=== PATIENT | male | born 1975 | race American Indian/Alaskan Native ===

== ENCOUNTER 2019-02-02 11:01 | Observation (INO) | payer MEDICAID, OTHER ==
[2019-02-02 11:33] VITALS: BMI 26.6
[2019-02-02] MEDS ORDERED: Sodium Chloride 0.9% 1,000 ML IV STA ×2 (11:43→13:26)
[2019-02-02 12:06] LABS: BASO # 0.02 K/mm3 (0.0-2.0); BASO % 0.2 % (0.0-3.0); HEMOGLOBIN 15.7 g/dL (14.0-18.0); MEAN CELL VOLUME 88.2 fl (80.0-105.0); MEAN CORPUSCULAR HEMOGLOBIN 30.9 pg (25.0-35.0); MEAN PLATELET VOLUME 9.6 fl (7.0-11.0); MONO # 0.2 (0.1-0.6); MONO % 1.9 % (1.0-6.0); RBC 5.08 10^6/uL (3.5-6.1); WHITE BLOOD COUNT 12.9 10^3/uL (4.5-11.0)
--- NOTE | 2019-02-02 12:09 | ED PDOC ---
Arrival/HPI - General Chief Complaint: Abdominal Pain Time Seen by Provider: 02/02/19 11:04 Historian: Patient - History of Present Illness Narrative History of Present Illness (Text): 02/02/19 12:01 43 year old M with pmh of appendectomy (3 month ago) presents with chief complaint of abdominal pain w/ nausea, vomiting, diarrhea, fevers and chills for the past 3 days. He reports being unable to tolerate PO recently due to vomiting and diarrhea. He denies any recent travel or consumption of usual food. He attempted to self-medicate by taking Pepto-Bismol with no relief in symptoms. He also reports associated intermittent chest pain for the last 2 weeks. Patient denies any headache, dizziness, shortness of breath, dyspnea on exertion, cough, back pain, neck pain, or any other complaint. Time/Duration: < week Symptom Onset: Sudden Symptom Course: Unchanged Activities at Onset: Rest Context: Home Past Medical History - Provider Review Nursing Documentation Reviewed: Yes - Travel History Have you recently traveled outside [place] w/in the past 3 mons?: No - Infectious Disease Hx of Infectious Diseases: None - Psychiatric Hx Substance Use: No - Surgical History Hx Appendectomy: Yes (3 months ago) - Anesthesia Hx Anesthesia: Yes Hx Anesthesia Reactions: No Hx Malignant Hyperthermia: No Family/Social History - Physician Review Nursing Documentation Reviewed: Yes Family/Social History: Unknown Family HX Smoking Status: Current Some Days Smoker Hx Alcohol Use: Yes Frequency of alcohol use: Socially Hx Substance Use: No Allergies/Home Meds Allergies/Adverse Reactions: Allergies No Known Allergies Allergy (Verified 02/02/19 11:36) Review of Systems - Physician Review All systems were reviewed & negative as marked: Yes - Review of Systems Constitutional: Fevers, Other (chills) Eyes: Normal ENT: Normal. absent: Sore Throat, Rhinorrhea Respiratory: Normal. absent: SOB, Wheezing Cardiovascular: Chest Pain. absent: Palpitations Gastrointestinal: Abdominal Pain, Diarrhea, Nausea, Vomiting Genitourinary Male: Normal Musculoskeletal: Normal Skin: Normal Neurological: Normal. absent: Headache, Dizziness Endocrine: Normal Hemo/Lymphatic: Normal Psychiatric: Normal Physical Exam Vital Signs Reviewed: Yes Vital Signs Temp Pulse Resp BP Pulse Ox 02/02/19 11:02 99.1 F 86 18 109/66 100 Temperature: Afebrile Blood Pressure: Normal Pulse: Regular Respiratory Rate: Normal Appearance: Positive for: Well-Appearing, Non-Toxic, Comfortable Pain Distress: Moderate Mental Status: Positive for: Alert and Oriented X 3 - Systems Exam Head: Present: Atraumatic, Normocephalic Pupils: Present: PERRL Extroacular Muscles: Present: EOMI Conjunctiva: Present: Normal Mouth: Present: Moist Mucous Membranes Neck: Present: Normal Range of Motion Respiratory/Chest: Present: Clear to Auscultation, Good Air Exchange. No: Respiratory Distress, Accessory Muscle Use Cardiovascular: Present: Regular Rate and Rhythm, Normal S1, S2. No: Murmurs Abdomen: Present: Tenderness (diffuse). No: Distention, Peritoneal Signs Back: Present: Normal Inspection Upper Extremity: Present: Normal Inspection. No: Cyanosis, Edema Lower Extremity: Present: Normal Inspection. No: Edema Neurological: Present: Speech Normal Skin: Present: Warm, Dry, Normal Color. No: Rashes Psychiatric: Present: Alert, Oriented x 3, Normal Insight, Normal Concentration Medical Decision Making ED Course and Treatment: 02/02/19 12:09 Impression: 43 year old M presents with chief complaint of abdominal pain w/ nausea, vomiting, diarrhea, fevers and chills x3 days . Patient also complains of chest pain x 2wks. Plan: -- Labs -- Chest X-ray --CT a/p -- Zofran -- UA -- Reassess and disposition Prior Visits: Notes and results from previous visits were reviewed. Progress Notes: 02/02/19 16:02 Patient reevaluated and reports minimal change from initial presentation. Labs reviewed with slight a a CT a/p reveals no acute intraabdominal pathology. Shared decision making with patient to stay in the hospital for observation. Discussed case with Dr. Haynes(hospitalist) who accepts case onto her service. - Lab Interpretations Lab Results: 02/02/19 11:58 02/02/19 11:58 Lab Results 02/02/19 11:58: Sodium 141, Potassium 4.0, Chloride 104, Carbon Dioxide 25, Anion Gap 16, BUN 19, Creatinine 0.8, Est GFR ( Amer) > 60, Est GFR (Non- Af Amer) > 60, Random Glucose 112 H, Calcium 9.6, Total Bilirubin 0.6, AST 44, ALT 9, Alkaline Phosphatase 73, Troponin I < 0.01, Total Protein 8.3, Albumin 4.6, Globulin 3.8, Albumin/Globulin Ratio 1.2, Lipase 83 02/02/19 11:58: PT 12.0, INR 1.06, APTT 34.9 02/02/19 11:58: WBC 12.9 H, RBC 5.08, Hgb 15.7, Hct 44.8, MCV 88.2, MCH 30.9, MCHC 35.0, RDW 13.0, Plt Count 260, MPV 9.6, Neut % (Auto) 89.9 H, Lymph % (Auto) 8.0 L, [place] % (Auto) 1.9, Eos % (Auto) 0.0 L, Baso % (Auto) 0.2, Lymph # (Auto) 1.0 L, [place] # (Auto) 0.2, Eos # (Auto) 0.0, Baso # (Auto) 0.02, Absolute Neuts (auto) 11.58 H I have reviewed the lab results: Yes - RAD Interpretation Narrative RAD Interpretations (Text): 02/02/19 14:26 CT of abdomen/pelvis reviewed by radiologist, shows: FINDINGS: LOWER THORAX: Unremarkable. LIVER: Normal size, contour and attenuation. 1.3 cm rounded low-attenuation mass in the right lobe of the liver. No other mass identified. No biliary dilatation. GALLBLADDER AND BILE DUCTS: Unremarkable. PANCREAS: Unremarkable. No gross lesion or ductal dilatation. SPLEEN: Unremarkable. ADRENALS: Unremarkable. No mass. KIDNEYS AND URETERS: Unremarkable. No hydronephrosis. No solid mass. VASCULATURE: Unremarkable. No aortic aneurysm. No aortic atherosclerotic calcification or mural plaque present. BOWEL: Evaluation of the bowel is somewhat limited due to patient motion artifact particularly obscuring the lower abdomen/upper pelvis. APPENDIX: Not identified. Status post appendectomy by history. No evidence of pericecal abscess. PERITONEUM: Unremarkable. No free fluid. No free air. LYMPH NODES: Unremarkable. No enlarged lymph nodes. BLADDER: Unremarkable. REPRODUCTIVE: Normal prostate BONES: No acute fracture. OTHER FINDINGS: None. IMPRESSION: Incidental 1.3 cm rounded low-attenuation mass in the right lobe of the liver. The remainder of the examination is unremarkable. Status post appendectomy. Examination limited due to patient motion artifact. 02/02/19 14:28 Chest X-ray reviewed by radiologist, shows: FINDINGS: LUNGS: No active pulmonary disease. PLEURA: No significant pleural effusion identified, no pneumothorax apparent. CARDIOVASCULAR: No aortic atherosclerotic calcification present. Normal cardiac size. No pulmonary vascular congestion. OSSEOUS STRUCTURES: No significant abnormalities. VISUALIZED UPPER ABDOMEN: Normal. OTHER FINDINGS: None. IMPRESSION: No active disease. Radiology Orders: 02/02/19 11:43 CHEST PORTABLE [RAD] Stat Stock Analyst: Radiologist - Medication Orders Current Medication Orders: Sodium Chloride (Sodium Chloride 0.9%) 1,000 mls @ 999 mls/hr IV .Q1H1M STA Stop: 02/02/19 12:43 Discontinued Medications Ondansetron HCl (Zofran Inj) 4 mg IVP STAT STA Stop: 02/02/19 11:44 - Scribe Statement The provider has reviewed the documentation as recorded by the Jenaro Johnson All medical record entries made by the Kristineibkrystian were at my direction and personally dictated by me. I have reviewed the chart and agree that the record accurately reflects my personal performance of the history, physical exam, medical decision making, and the department course for this patient. I have also personally directed, reviewed, and agree with the discharge instructions and disposition. Disposition/Present on Arrival - Present on Arrival Any Indicators Present on Arrival: No History of DVT/PE: No History of Uncontrolled Diabetes: No Urinary Catheter: No History of Decub. Ulcer: No History Surgical Site Infection Following: None - Disposition Have Diagnosis and Disposition been Completed?: Yes Diagnosis: Gastroenteritis Disposition: HOSPITALIZED Disposition Time: 15:00 Patient Plan: Admission Condition: GOOD
[2019-02-02] MEDS ORDERED: Alum-Mag Hydrox-Simethicone Susp (30 mL) PO STA (12:13)
[2019-02-02 12:14] LABS: INR 1.06; PARTIAL THROMBOPLASTIN TIME 34.9 Seconds (26.9-38.3)
[2019-02-02 12:15] LABS: ALB/GLOB RATIO 1.2 (1.1-1.8); ALBUMIN 4.6 g/dL (3.0-4.8); ALT/SGPT 9 U/L (7-56); AST/SGOT 44 U/L (17-59); BLOOD UREA NITROGEN 19 mg/dL (7-21); CALCIUM 9.6 mg/dL (8.4-10.5); GFR NON-AFRICAN AMERICAN > 60; LIPASE 83 U/L (23-300)
[2019-02-02 12:26] LABS: TROPONIN I < 0.01 ng/mL
--- NOTE | 2019-02-02 13:16 | RAD ---
Date of service: 02/02/2019 HISTORY: abd pain COMPARISON: No prior. TECHNIQUE: 1 view obtained. FINDINGS: LUNGS: No active pulmonary disease. PLEURA: No significant pleural effusion identified, no pneumothorax apparent. CARDIOVASCULAR: No aortic atherosclerotic calcification present. Normal cardiac size. No pulmonary vascular congestion. OSSEOUS STRUCTURES: No significant abnormalities. VISUALIZED UPPER ABDOMEN: Normal. OTHER FINDINGS: None. IMPRESSION: No active disease.
[2019-02-02] MEDS ORDERED: Morphine 4 mg/ml ISec IVP STA (13:24)
--- NOTE | 2019-02-02 13:55 | CT ---
Date of service: 02/02/2019 PROCEDURE: CT Abdomen and Pelvis with contrast HISTORY: s/p appendectomy w/ abdominal pain COMPARISON: None. TECHNIQUE: Contrast dose: 150 mL Omnipaque 350 Radiation dose: Total exam DLP = 464.14 mGy-cm. This CT exam was performed using one or more of the following dose reduction techniques: Automated exposure control, adjustment of the mA and/or kV according to patient size, and/or use of iterative reconstruction technique. FINDINGS: LOWER THORAX: Unremarkable. LIVER: Normal size, contour and attenuation. 1.3 cm rounded low-attenuation mass in the right lobe of the liver. No other mass identified. No biliary dilatation. GALLBLADDER AND BILE DUCTS: Unremarkable. PANCREAS: Unremarkable. No gross lesion or ductal dilatation. SPLEEN: Unremarkable. ADRENALS: Unremarkable. No mass. KIDNEYS AND URETERS: Unremarkable. No hydronephrosis. No solid mass. VASCULATURE: Unremarkable. No aortic aneurysm. No aortic atherosclerotic calcification or mural plaque present. BOWEL: Evaluation of the bowel is somewhat limited due to patient motion artifact particularly obscuring the lower abdomen/upper pelvis. APPENDIX: Not identified. Status post appendectomy by history. No evidence of pericecal abscess. PERITONEUM: Unremarkable. No free fluid. No free air. LYMPH NODES: Unremarkable. No enlarged lymph nodes. BLADDER: Unremarkable. REPRODUCTIVE: Normal prostate BONES: No acute fracture. OTHER FINDINGS: None. IMPRESSION: Incidental 1.3 cm rounded low-attenuation mass in the right lobe of the liver. The remainder of the examination is unremarkable. Status post appendectomy. Examination limited due to patient motion artifact.
[2019-02-02] MEDS ORDERED: Atrop/Hyosc/Scopal/PB Elixir (120 ml) PO SCH (14:00)
[2019-02-02] MEDS ORDERED: levoFLOXacin 500 MG TAB PO STA (14:41)
[2019-02-02] MEDS ORDERED: Vitamins A & D Oint UD Foilpak TOP PRN (17:01)
--- NOTE | 2019-02-02 17:09 | CP.PCM.HP ---
<Yury Brasher - Last Filed: 02/02/19 20:30> History of Present Illness - History of Present Illness History of Present Illness: Internal Medicine History and Physical (Dr. Varner's Service) CC: Nausea/Vomiting/Diarrhea HPI: Mr. Vallejo is a 43 year old male with a past medical history significant for recent appendectomy presents for N/V, diarrhea and epigastric abdominal pain for the past three days. Patient reports that for the past 10 months he has been having episodic sharp and crampy abdominal pain that lasts 3-4 days. This is associated with 2-3 episodes of bilious vomiting daily as well as watery diarrhea 2-3 times per day. He denies any association with PO intake of any kind, activity, or with urination. He denies any relieving factors including Pepcid and Pepto Bismol. Patient has been seen multiple times at [facility] for this complaint and had an appendectomy approximately 1-2 months ago. He denies any relief after the operation and has had the same abdominal pain, N/V and diarrhea at the same frequencies since that time. Patient denies ever having been seen by an outpatient [employer] or ever having had an EGD/CSPY. Patient denies any other complaints at this time. 12 point ROS reviewed and is unremarkable outside of what has been mentioned above. PMH: Denies PSH: Appendectomy, Ankle Repair and Jaw Repair Family History: Mother- from complications related to HIV Social History: Current one pack per day smoker, drinks 2-3 mixed vodka drinks 2-3/week, and intermittently uses illicit drugs (used ecstasy two weeks ago) Allergies: NKDA Home Medications: None PMD: None Present on Admission - Present on Admission Any Indicators Present on Admission: No Review of Systems - Review of Systems Review of Systems: As stated in HPI, otherwise negative Past Patient History - Infectious Disease Hx of Infectious Diseases: None - Past Social History Smoking Status: Current Some Days Smoker - PSYCHIATRIC Hx Substance Use: No - SURGICAL HISTORY Hx Appendectomy: Yes (3 months ago) - ANESTHESIA Hx Anesthesia: Yes Hx Anesthesia Reactions: No Hx Malignant Hyperthermia: No Meds Allergies/Adverse Reactions: Allergies Allergy/AdvReac Type Severity Reaction Status Date / Time No Known Allergies Allergy Verified 02/02/19 11:36 Physical Exam - Constitutional Appears: Non-toxic, No Acute Distress - Head Exam Head Exam: ATRAUMATIC, NORMOCEPHALIC - Eye Exam Eye Exam: EOMI, Normal appearance, PERRL - ENT Exam ENT Exam: Mucous Membranes Moist - Neck Exam Neck exam: Positive for: Full Rom - Respiratory Exam Respiratory Exam: Clear to Auscultation Bilateral, NORMAL BREATHING PATTERN. absent: Accessory Muscle Use, Rales, Rhonchi, Wheezes, Respiratory Distress - Cardiovascular Exam Cardiovascular Exam: REGULAR RHYTHM, RRR, +S1, +S2 - GI/Abdominal Exam GI & Abdominal Exam: Normal Bowel Sounds, Soft, Tenderness (tenderness to deep palpation diffusely). absent: Bruit, Diminished Bowel Sounds, Distended, Firm, Guarding, Hernia, Hyperactive Bowel Sounds, Hypoactive Bowel Sounds, Mass, Organomegaly, Pulsatile Mass, Rebound, Rigid - Extremities Exam Extremities exam: Positive for: full ROM, normal capillary refill, normal inspection, pedal pulses present. Negative for: calf tenderness, joint swelling, pedal edema, tenderness - Neurological Exam Neurological exam: Alert, Oriented x3 - Psychiatric Exam Psychiatric exam: Normal Affect, Normal Mood - Skin Skin Exam: Dry, Intact, Normal Color, Warm Results - Vital Signs Recent Vital Signs: Last Vital Signs Temp 98.4 F 02/02/19 15:51 Pulse 70 02/02/19 15:51 Resp 18 02/02/19 15:51 BP 154/57 H 02/02/19 15:51 Pulse Ox 100 02/02/19 15:51 - Labs Result Diagrams: 02/02/19 11:58 02/02/19 11:58 Labs: Laboratory Results - last 24 hr 02/02/19 02/02/19 02/02/19 11:58 11:58 11:58 WBC 12.9 H RBC 5.08 Hgb 15.7 Hct 44.8 MCV 88.2 MCH 30.9 MCHC 35.0 RDW 13.0 Plt Count 260 MPV 9.6 Neut % (Auto) 89.9 H Lymph % (Auto) 8.0 L [place] % (Auto) 1.9 Eos % (Auto) 0.0 L Baso % (Auto) 0.2 Lymph # (Auto) 1.0 L [place] # (Auto) 0.2 Eos # (Auto) 0.0 Baso # (Auto) 0.02 Absolute Neuts (auto) 11.58 H PT 12.0 INR 1.06 APTT 34.9 Sodium 141 Potassium 4.0 Chloride 104 Carbon Dioxide 25 Anion Gap 16 BUN 19 Creatinine 0.8 Est GFR ( Amer) > 60 Est GFR (Non-Af Amer) > 60 Random Glucose 112 H Calcium 9.6 Total Bilirubin 0.6 AST 44 ALT 9 Alkaline Phosphatase 73 Troponin I < 0.01 Total Protein 8.3 Albumin 4.6 Globulin 3.8 Albumin/Globulin Ratio 1.2 Lipase 83 Assessment & Plan - Assessment and Plan (Free Text) Assessment: 43 year old male with a past medical history significant for recent appendectomy presents for N/V, diarrhea and epigastric abdominal pain for the past three days. Plan: 1. Abdominal Pain -CT Abdomen/Pelvis showed no acute processes -Afebrile, normotensive, non-tachycardic and with noted mild leukocytosis -Normal Saline at 100mls/hr -Zofran 4mg Q4 PRN for N/V -Protonix 40mg IVP -Vitamin A&D ointment PRN for dry mouth -NPO except medications 2. Leukocytosis -Mild; Noted on CBC in ED -Chest X-Ray showed no active disease -UA showing no signs of UTI -Continue to monitor with daily CBC's 3. Liver Cyst -Noted incidentally on CT abdomen/pelvis -Will obtain records from [facility] for comparison -Will recommend outpatient followup for serial imaging GI Prophylaxis: Protonix DVT Prophylaxis: SCD's Patient seen and case discussed with attending, Dr. Varner. Yury Brasher PGY2 - Date & Time Date: 02/02/19 Time: 17:16 <Hemal Varner - Last Filed: 02/03/19 08:37> Results - Vital Signs Recent Vital Signs: Last Vital Signs Temp 98.4 F 02/03/19 08:18 Pulse 65 02/03/19 08:18 Resp 18 02/03/19 08:18 BP 166/86 H 02/03/19 08:18 Pulse Ox 93 L 02/03/19 08:18 - Labs Result Diagrams: 02/03/19 05:30 02/03/19 05:30 Labs: Laboratory Results - last 24 hr 02/02/19 02/02/19 02/02/19 11:58 11:58 11:58 WBC 12.9 H RBC 5.08 Hgb 15.7 Hct 44.8 MCV 88.2 MCH 30.9 MCHC 35.0 RDW 13.0 Plt Count 260 MPV 9.6 Neut % (Auto) 89.9 H Lymph % (Auto) 8.0 L [place] % (Auto) 1.9 Eos % (Auto) 0.0 L Baso % (Auto) 0.2 Lymph # (Auto) 1.0 L [place] # (Auto) 0.2 Eos # (Auto) 0.0 Baso # (Auto) 0.02 Absolute Neuts (auto) 11.58 H PT 12.0 INR 1.06 APTT 34.9 Sodium 141 Potassium 4.0 Chloride 104 Carbon Dioxide 25 Anion Gap 16 BUN 19 Creatinine 0.8 Est GFR ( Amer) > 60 Est GFR (Non-Af Amer) > 60 Random Glucose 112 H Calcium 9.6 Total Bilirubin 0.6 AST 44 ALT 9 Alkaline Phosphatase 73 Troponin I < 0.01 Total Protein 8.3 Albumin 4.6 Globulin 3.8 Albumin/Globulin Ratio 1.2 Lipase 83 Urine Color Urine Appearance Urine pH Ur Specific [place] Urine Protein Urine Glucose (UA) Urine Ketones Urine Blood Urine Nitrate Urine Bilirubin Urine Urobilinogen Ur Leukocyte Esterase Urine RBC Urine WBC Ur Epithelial Cells Amorphous Sediment Urine Opiates Screen Urine Methadone Screen Ur Barbiturates Screen Ur Phencyclidine Scrn Ur Amphetamines Screen U Benzodiazepines Scrn U Oth Cocaine Metabols U Cannabinoids Screen 02/02/19 02/02/19 02/03/19 17:30 17:30 05:30 WBC 14.4 H RBC 4.51 Hgb 13.8 L Hct 40.3 L MCV 89.4 MCH 30.6 MCHC 34.2 RDW 13.1 Plt Count 254 MPV 10.1 Neut % (Auto) 89.8 H Lymph % (Auto) 7.7 L [place] % (Auto) 2.5 Eos % (Auto) 0.0 L Baso % (Auto) 0.0 Lymph # (Auto) 1.1 L [place] # (Auto) 0.4 Eos # (Auto) 0.0 Baso # (Auto) 0.00 Absolute Neuts (auto) 12.91 H PT INR APTT Sodium Potassium Chloride Carbon Dioxide Anion Gap BUN Creatinine Est GFR ( Amer) Est GFR (Non-Af Amer) Random Glucose Calcium Total Bilirubin AST ALT Alkaline Phosphatase Troponin I Total Protein Albumin Globulin Albumin/Globulin Ratio Lipase Urine Color Yellow Urine Appearance Clear Urine pH 8.5 Ur Specific [place] <= 1.005 Urine Protein 30 H Urine Glucose (UA) Negative Urine Ketones 40 H Urine Blood Negative Urine Nitrate Negative Urine Bilirubin Negative Urine Urobilinogen 1.0 H Ur Leukocyte Esterase Negative Urine RBC TEST NOT PERFORMED Urine WBC 5 - 10 H Ur Epithelial Cells 6 - 8 H Amorphous Sediment Trace Urine Opiates Screen Positive H Urine Methadone Screen Negative Ur Barbiturates Screen Negative Ur Phencyclidine Scrn Negative Ur Amphetamines Screen Negative U Benzodiazepines Scrn Negative U Oth Cocaine Metabols Negative U Cannabinoids Screen Negative 02/03/19 05:30 WBC RBC Hgb Hct MCV MCH MCHC RDW Plt Count MPV Neut % (Auto) Lymph % (Auto) [place] % (Auto) Eos % (Auto) Baso % (Auto) Lymph # (Auto) [place] # (Auto) Eos # (Auto) Baso # (Auto) Absolute Neuts (auto) PT INR APTT Sodium 144 Potassium 3.9 Chloride 109 H Carbon Dioxide 24 Anion Gap 15 BUN 26 H Creatinine 1.0 Est GFR ( Amer) > 60 Est GFR (Non-Af Amer) > 60 Random Glucose 95 Calcium 8.9 Total Bilirubin 0.5 AST 29 ALT 10 Alkaline Phosphatase 60 Troponin I < 0.01 Total Protein 6.9 Albumin 3.8 Globulin 3.1 Albumin/Globulin Ratio 1.2 Lipase Urine Color Urine Appearance Urine pH Ur Specific [place] Urine Protein Urine Glucose (UA) Urine Ketones Urine Blood Urine Nitrate Urine Bilirubin Urine Urobilinogen Ur Leukocyte Esterase Urine RBC Urine WBC Ur Epithelial Cells Amorphous Sediment Urine Opiates Screen Urine Methadone Screen Ur Barbiturates Screen Ur Phencyclidine Scrn Ur Amphetamines Screen U Benzodiazepines Scrn U Oth Cocaine Metabols U Cannabinoids Screen Attending/Attestation - Attestation I have personally seen and examined this patient.: Yes I have fully participated in the care of the patient.: Yes I have reviewed all pertinent clinical information: Yes Notes (Text): 02/02/19 43 year old male who presents with complaint of intractable nausea and vomiting with episodes of diarrhea and epigastric pain. He reports symptoms have been on and off ongoing for the past several months. History of appendectomy several months ago. CT abd/pelvis showed incidental 1.3 cm right lobe liver lesion, otherwise unremarkable. Mild leukocytosis on labs, likely reactive. CXR/UA is negative. UTox is ordered. Continue with NPO, IVF, protonix and anti-emetics as needed. Consider GI evaluation if symptoms are persistent. Will need outpatient follow up for incidental liver lesion seen on CT scan. Can request prior records from [facility] for comparison if available. Hemal Varner MD Hospitalist.
[2019-02-02] MEDS: Sodium Chloride 0.9% 1,000 ML IV SCH (17:39)
[2019-02-02 17:46] LABS: PH,URINE 8.5 (4.7-8.0); URINE BILIRUBIN NEGATIVE (NEGATIVE); URINE BLOOD NEGATIVE (NEGATIVE); URINE GLUCOSE (UA) NEGATIVE (NEGATIVE); URINE LEUKOCYTE ESTERASE NEGATIVE Leu/uL (NEGATIVE); URINE PROTEIN 30 mg/dL (<30 mg/dL)
[2019-02-02 17:58] LABS: URINE APPEARANCE CLEAR (CLEAR); URINE COLOR YELLOW (YELLOW)
[2019-02-02 18:00] LABS: BARBITURATES, UR NEGATIVE (NEGATIVE); PHENCYCLIDINE, UR NEGATIVE (NEGATIVE)
[2019-02-02 18:01] LABS: BENZODIAZEPINES, UR NEGATIVE (NEGATIVE); OPIATES, UR POSITIVE (NEGATIVE)
[2019-02-02 18:05] LABS: URINE AMORPHOUS SEDIMENT TRACE /hpf
[2019-02-03] MEDS ORDERED: Morphine 2 mg/ml ISec IVP ONE (01:32)
--- NOTE | 2019-02-03 04:47 | CP.PCM.PCO ---
<Ac Bonilla - Last Filed: 02/03/19 04:46> Physician Communication Note - Physician Communication Note Physician Communication Note: see above <Dali Benavides - Last Filed: 02/03/19 05:23> Attending/Attestation - Attestation I have personally seen and examined this patient.: Yes I have fully participated in the care of the patient.: Yes I have reviewed all pertinent clinical information: Yes Notes (Text): 02/03/19 04:59 Denies headache, dizziness, paraesthesia.3Gives history of chest pain for past 3 weeks on and off, some times feels that somebody is sitting on chest , feels heviness in the chest, gives history his uncle having mi at age 38 years, 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 OE : there is no nuchal rigidiy, no epigastric or abdominal or chest wall tenderness. Intractable nausea/vomiting/retching may be due to analgesic like morphine, from having heroine withdrawal. If continues, will get GI consultation for evaluation of possible right lower lobe of liver 1.3 cm mass as suggested by CT abdomen/pelvis.
[2019-02-03] MEDS: Sodium Chloride 0.9% 1,000 ML IV SCH (05:17)
[2019-02-03 05:44] LABS: HEMOGLOBIN 13.8 g/dL (14.0-18.0); LYMPH # 1.1 (1.2-3.4); LYMPH % 7.7 % (22.0-35.0); MEAN CELL VOLUME 89.4 fl (80.0-105.0); MEAN CORPUSCULAR HEMOGLOBIN 30.6 pg (25.0-35.0); MEAN CORPUSCULAR HGB CONC 34.2 g/dl (31.0-37.0); MEAN PLATELET VOLUME 10.1 fl (7.0-11.0); MONO # 0.4 (0.1-0.6); MONO % 2.5 % (1.0-6.0); RBC 4.51 10^6/uL (3.5-6.1); RED CELL DISTRIBUTION WIDTH 13.1 % (11.5-14.5); WHITE BLOOD COUNT 14.4 10^3/uL (4.5-11.0)
[2019-02-03 06:03] LABS: TROPONIN I < 0.01 ng/mL
[2019-02-03 06:11] LABS: ALB/GLOB RATIO 1.2 (1.1-1.8); ALBUMIN 3.8 g/dL (3.0-4.8); ALT/SGPT 10 U/L (7-56); AST/SGOT 29 U/L (17-59); BLOOD UREA NITROGEN 26 mg/dL (7-21); CALCIUM 8.9 mg/dL (8.4-10.5); GFR NON-AFRICAN AMERICAN > 60
[2019-02-03 08:18] VITALS: RESP 18
--- NOTE | 2019-02-03 08:40 | CP.PCM.CON ---
<Jenna Castelan - Last Filed: 02/03/19 13:34> History of Present Illness - History of Present Illness History of Present Illness: Gastroenterology Fellow/PGY6 Consult Note 43 year old male with PMH of Polysubstance abuse (heroin, ecstasy, tobacco, alcohol) presenting with vomiting and diarrhea. Patient notes onset of symptoms for the last few days with over ten episodes of watery diarrhea and bilious vomiting leading to presentation. Patient notes improving of vomitning after medical treatment received in ER. Admits to persistent nausea and watery diarrhea. Associated chills and dry cough. Denies abdominal pain, heartburn, acid reflux, hematemesis, melena, hematochezia, or unintentional weight loss, recent sick contacts, or new medications. Last used heroin and ecstasy five days ago. Notes he usually uses illicit drugs every two days at baseline. 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 [place] [facility] [place] prior EGD or colonoscopy. Family History- Mother- HIV, uncle-CA; denies liver disease, stomach cancer, colon cancer Social History- 1/2-1ppd, at least 2 pints of beer/liquor daily 3-4 times a week, ecstasy and heroin use every two days Surgical History- appendectomy, jaw repair, ankle repair Review of Systems - Review of Systems Review of Systems: 12-point review of systems negative except for as above Past Patient History - Infectious Disease Hx of Infectious Diseases: None - Past Social History Smoking Status: Current Some Days Smoker - CARDIAC Hx Cardiac Disorders: No - PULMONARY Hx Respiratory Disorders: No - NEUROLOGICAL Hx Neurological Disorder: No - HEENT Hx HEENT Problems: No - RENAL Hx Chronic Kidney Disease: No - ENDOCRINE/METABOLIC Hx Endocrine Disorders: No - HEMATOLOGICAL/ONCOLOGICAL Hx Blood Disorders: No - INTEGUMENTARY Hx Dermatological Problems: No - MUSCULOSKELETAL/RHEUMATOLOGICAL Hx Musculoskeletal Disorders: No Hx Falls: No - GASTROINTESTINAL Hx Gastrointestinal Disorders: No - GENITOURINARY/GYNECOLOGICAL Hx Genitourinary Disorders: No - PSYCHIATRIC Hx Substance Use: No - SURGICAL HISTORY Hx Appendectomy: Yes (3 months ago) - ANESTHESIA Hx Anesthesia: Yes Hx Anesthesia Reactions: No Hx Malignant Hyperthermia: No Meds Allergies/Adverse Reactions: Allergies Allergy/AdvReac Type Severity Reaction Status Date / Time No Known Allergies Allergy Verified 02/02/19 11:36 - Medications Medications: Current Medications Sodium Chloride (Sodium Chloride 0.9%) 1,000 mls @ 100 mls/hr IV .Q10H [facility] Last Admin: 02/03/19 05:17 Dose: 100 mls/hr Ondansetron HCl (Zofran Inj) 4 mg IVP Q4H PRN PRN Reason: Nausea/Vomiting Last Admin: 02/03/19 01:20 Dose: 4 mg Pantoprazole Sodium (Protonix Inj) 40 mg IVP DAILY [facility] Vitamin A (Vitamin A & D Oint Ud Foilpak) 1 ea TOP Q2 PRN PRN Reason: Dry mouth Physical Exam - Constitutional Appears: Non-toxic, No Acute Distress - Head Exam Head Exam: ATRAUMATIC, NORMOCEPHALIC - Eye Exam Eye Exam: EOMI, PERRL. absent: Scleral icterus Pupil Exam: PERRL. absent: Miosis, Mydriatic - ENT Exam ENT Exam: Mucous Membranes Moist, Normal Oropharynx - Neck Exam Neck exam: Positive for: Full Rom, Normal Inspection - Respiratory Exam Respiratory Exam: Clear to Auscultation Bilateral. absent: Rales, Rhonchi, Wheezes - Cardiovascular Exam Cardiovascular Exam: RRR, +S1, +S2. absent: Gallop, Rubs - GI/Abdominal Exam GI & Abdominal Exam: Normal Bowel Sounds, Soft. absent: Distended, Firm, Guarding, Organomegaly, Rebound, Rigid, Tenderness - Extremities Exam Extremities exam: Positive for: normal inspection. Negative for: pedal edema - Neurological Exam Neurological exam: Alert - Psychiatric Exam Psychiatric exam: Normal Affect, Normal Mood - Skin Skin Exam: Dry, Intact, Normal Color, Warm Results - Vital Signs Recent Vital Signs: Last Vital Signs Temp 98.4 F 02/03/19 08:18 Pulse 65 02/03/19 08:18 Resp 18 02/03/19 08:18 BP 166/86 H 02/03/19 08:18 Pulse Ox 93 L 02/03/19 08:18 - Labs Result Diagrams: 02/03/19 05:30 02/03/19 05:30 Labs: Laboratory Results - last 24 hr 02/02/19 02/02/19 02/02/19 11:58 11:58 11:58 WBC 12.9 H RBC 5.08 Hgb 15.7 Hct 44.8 MCV 88.2 MCH 30.9 MCHC 35.0 RDW 13.0 Plt Count 260 MPV 9.6 Neut % (Auto) 89.9 H Lymph % (Auto) 8.0 L [place] % (Auto) 1.9 Eos % (Auto) 0.0 L Baso % (Auto) 0.2 Lymph # (Auto) 1.0 L [place] # (Auto) 0.2 Eos # (Auto) 0.0 Baso # (Auto) 0.02 Absolute Neuts (auto) 11.58 H PT 12.0 INR 1.06 APTT 34.9 Sodium 141 Potassium 4.0 Chloride 104 Carbon Dioxide 25 Anion Gap 16 BUN 19 Creatinine 0.8 Est GFR ( Amer) > 60 Est GFR (Non-Af Amer) > 60 Random Glucose 112 H Calcium 9.6 Total Bilirubin 0.6 AST 44 ALT 9 Alkaline Phosphatase 73 Troponin I < 0.01 Total Protein 8.3 Albumin 4.6 Globulin 3.8 Albumin/Globulin Ratio 1.2 Lipase 83 Urine Color Urine Appearance Urine pH Ur Specific [place] Urine Protein Urine Glucose (UA) Urine Ketones Urine Blood Urine Nitrate Urine Bilirubin Urine Urobilinogen Ur Leukocyte Esterase Urine RBC Urine WBC Ur Epithelial Cells Amorphous Sediment Urine Opiates Screen Urine Methadone Screen Ur Barbiturates Screen Ur Phencyclidine Scrn Ur Amphetamines Screen U Benzodiazepines Scrn U Oth Cocaine Metabols U Cannabinoids Screen 02/02/19 02/02/19 02/03/19 17:30 17:30 05:30 WBC 14.4 H RBC 4.51 Hgb 13.8 L Hct 40.3 L MCV 89.4 MCH 30.6 MCHC 34.2 RDW 13.1 Plt Count 254 MPV 10.1 Neut % (Auto) 89.8 H Lymph % (Auto) 7.7 L [place] % (Auto) 2.5 Eos % (Auto) 0.0 L Baso % (Auto) 0.0 Lymph # (Auto) 1.1 L [place] # (Auto) 0.4 Eos # (Auto) 0.0 Baso # (Auto) 0.00 Absolute Neuts (auto) 12.91 H PT INR APTT Sodium Potassium Chloride Carbon Dioxide Anion Gap BUN Creatinine Est GFR ( Amer) Est GFR (Non-Af Amer) Random Glucose Calcium Total Bilirubin AST ALT Alkaline Phosphatase Troponin I Total Protein Albumin Globulin Albumin/Globulin Ratio Lipase Urine Color Yellow Urine Appearance Clear Urine pH 8.5 Ur Specific [place] <= 1.005 Urine Protein 30 H Urine Glucose (UA) Negative Urine Ketones 40 H Urine Blood Negative Urine Nitrate Negative Urine Bilirubin Negative Urine Urobilinogen 1.0 H Ur Leukocyte Esterase Negative Urine RBC TEST NOT PERFORMED Urine WBC 5 - 10 H Ur Epithelial Cells 6 - 8 H Amorphous Sediment Trace Urine Opiates Screen Positive H Urine Methadone Screen Negative Ur Barbiturates Screen Negative Ur Phencyclidine Scrn Negative Ur Amphetamines Screen Negative U Benzodiazepines Scrn Negative U Oth Cocaine Metabols Negative U Cannabinoids Screen Negative 02/03/19 05:30 WBC RBC Hgb Hct MCV MCH MCHC RDW Plt Count MPV Neut % (Auto) Lymph % (Auto) [place] % (Auto) Eos % (Auto) Baso % (Auto) Lymph # (Auto) [place] # (Auto) Eos # (Auto) Baso # (Auto) Absolute Neuts (auto) PT INR APTT Sodium 144 Potassium 3.9 Chloride 109 H Carbon Dioxide 24 Anion Gap 15 BUN 26 H Creatinine 1.0 Est GFR ( Amer) > 60 Est GFR (Non-Af Amer) > 60 Random Glucose 95 Calcium 8.9 Total Bilirubin 0.5 AST 29 ALT 10 Alkaline Phosphatase 60 Troponin I < 0.01 Total Protein 6.9 Albumin 3.8 Globulin 3.1 Albumin/Globulin Ratio 1.2 Lipase Urine Color Urine Appearance Urine pH Ur Specific [place] Urine Protein Urine Glucose (UA) Urine Ketones Urine Blood Urine Nitrate Urine Bilirubin Urine Urobilinogen Ur Leukocyte Esterase Urine RBC Urine WBC Ur Epithelial Cells Amorphous Sediment Urine Opiates Screen Urine Methadone Screen Ur Barbiturates Screen Ur Phencyclidine Scrn Ur Amphetamines Screen U Benzodiazepines Scrn U Oth Cocaine Metabols U Cannabinoids Screen Assessment & Plan - Assessment and Plan (Free Text) Assessment: 43 year old male with PMH of Polysubstance abuse (heroin, ecstasy, tobacco, alcohol) presenting with vomiting and diarrhea. [place] [facility] [place] No prior EGD or colonoscopy. Plan: -likely heroin/ecstasy withdrawal -patient having formed stools on morning evaluation -CT A/P IV contrast- constipation, no bowel or stomach pathology noted -rule out infectious diarrhea if episode of watery stools occurs- Cdiff, stool culture, O&P -supportive care- anti-emetics, PPI ACB, Pepcid QHS, IVFs -tolerated clear liquids, advance to regular diet as tolerated -start Miralax daily -CT-noted hypodensity right hepatic lobe -ordered AFP, Hepatitis panel -will benefit from elective multiphasic CT liver protocol -recommend rule out HIV -will follow clinical course <Jaret Méndez V - Last Filed: 02/04/19 00:02> Meds - Medications Medications: Current Medications Famotidine (Pepcid) 40 mg PO HS [facility] Last Admin: 02/03/19 22:19 Dose: 40 mg Sodium Chloride (Sodium Chloride 0.9%) 1,000 mls @ 100 mls/hr IV .Q10H SHANEL Last Admin: 02/03/19 05:17 Dose: 100 mls/hr Lorazepam (Ativan) 2 mg IVP Q4H PRN; Protocol PRN Reason: Withdrawl Last Admin: 02/03/19 23:39 Dose: 2 mg Ondansetron HCl (Zofran Inj) 4 mg IVP Q4H PRN PRN Reason: Nausea/Vomiting Last Admin: 02/03/19 23:40 Dose: 4 mg Pantoprazole Sodium (Protonix Inj) 40 mg IVP 0700 [facility] Polyethylene Glycol (Miralax) 17 gm PO DAILY [facility] Last Admin: 02/03/19 18:01 Dose: Not Given Vitamin A (Vitamin A & D Oint Ud Foilpak) 1 ea TOP Q2 PRN PRN Reason: Dry mouth Results - Vital Signs Recent Vital Signs: Last Vital Signs Temp 99.6 F 02/03/19 16:30 Pulse 63 02/03/19 16:30 Resp 18 02/03/19 16:30 BP 142/82 02/03/19 16:30 Pulse Ox 98 02/03/19 16:30 - Labs Result Diagrams: 02/03/19 05:30 02/03/19 05:30 Labs: Laboratory Results - last 24 hr 02/03/19 02/03/19 02/03/19 05:30 05:30 08:50 WBC 14.4 H RBC 4.51 Hgb 13.8 L Hct 40.3 L MCV 89.4 MCH 30.6 MCHC 34.2 RDW 13.1 Plt Count 254 MPV 10.1 Neut % (Auto) 89.8 H Lymph % (Auto) 7.7 L [place] % (Auto) 2.5 Eos % (Auto) 0.0 L Baso % (Auto) 0.0 Lymph # (Auto) 1.1 L [place] # (Auto) 0.4 Eos # (Auto) 0.0 Baso # (Auto) 0.00 Absolute Neuts (auto) 12.91 H Sodium 144 Potassium 3.9 Chloride 109 H Carbon Dioxide 24 Anion Gap 15 BUN 26 H Creatinine 1.0 Est GFR ( Amer) > 60 Est GFR (Non-Af Amer) > 60 Random Glucose 95 Calcium 8.9 Total Bilirubin 0.5 AST 29 ALT 10 Alkaline Phosphatase 60 Troponin I < 0.01 Total Protein 6.9 Albumin 3.8 Globulin 3.1 Albumin/Globulin Ratio 1.2 Alpha Fetoprotein 1.2 Hepatitis A IgM Ab Hep Bs Antigen Hep B Core IgM Ab Hepatitis C Antibody 02/03/19 02/03/19 08:50 13:15 WBC RBC Hgb Hct MCV MCH MCHC RDW Plt Count MPV Neut % (Auto) Lymph % (Auto) [place] % (Auto) Eos % (Auto) Baso % (Auto) Lymph # (Auto) [place] # (Auto) Eos # (Auto) Baso # (Auto) Absolute Neuts (auto) Sodium Potassium Chloride Carbon Dioxide Anion Gap BUN Creatinine Est GFR ( Amer) Est GFR (Non-Af Amer) Random Glucose Calcium Total Bilirubin AST ALT Alkaline Phosphatase Troponin I < 0.01 Total Protein Albumin Globulin Albumin/Globulin Ratio Alpha Fetoprotein Hepatitis A IgM Ab Negative Hep Bs Antigen Negative Hep B Core IgM Ab Negative Hepatitis C Antibody Negative Attending/Attestation - Attestation I have personally seen and examined this patient.: Yes I have fully participated in the care of the patient.: Yes I have reviewed all pertinent clinical information: Yes Notes (Text): This is an addendum to the GI progress report dictated by GI fellow. Patient was seen and evaluated here earlier along with the fellow. CT scan was reviewed with the resident amount of stool present. Patient comfortable at the time of examination we will slowly increase the diet 02/03/19 23:50
--- NOTE | 2019-02-03 10:39 | CARD ---
APPROVED REPORT Date of service: 02/03/2019 EKG Measurement Heart [id number] <Conclusion> Normal sinus rhythm Normal ECG
--- NOTE | 2019-02-03 12:25 | CP.PCM.PN ---
<Jarocho Haro - Last Filed: 02/03/19 13:04> Subjective - Date & Time of Evaluation Date of Evaluation: 02/03/19 Time of Evaluation: 08:30 - Subjective Subjective: Jarocho Haro PGY-1 Progress Note for Hospitalist Service Patient seen and evaluated at bedside. Patient increasingly retched throughout the night without vomiting or hematemesis. Patient was given Morphine 2 mg and Reglan 10 mg IVP as well as protonix 40 mg IVP and benadryl 25 mg PO. Remains NPO at this time. Objective - Vital Signs/Intake and Output Vital Signs (last 24 hours): Temp Pulse Resp BP Pulse Ox 98.4 F 65 18 166/86 H 93 L 02/03/19 08:18 02/03/19 08:18 02/03/19 08:18 02/03/19 08:18 02/03/19 08:18 Intake and Output: 02/03/19 02/03/19 06:59 18:59 Intake Total 0 Output Total 600 Balance -600 - Medications Medications: Current Medications Famotidine (Pepcid) 40 mg PO HS [facility] Sodium Chloride (Sodium Chloride 0.9%) 1,000 mls @ 100 mls/hr IV .Q10H SHANEL Last Admin: 02/03/19 05:17 Dose: 100 mls/hr Ondansetron HCl (Zofran Inj) 4 mg IVP Q4H PRN PRN Reason: Nausea/Vomiting Last Admin: 02/03/19 01:20 Dose: 4 mg Pantoprazole Sodium (Protonix Inj) 40 mg IVP 0700 [facility] Vitamin A (Vitamin A & D Oint Ud Foilpak) 1 ea TOP Q2 PRN PRN Reason: Dry mouth - Labs Labs: 02/03/19 05:30 02/03/19 05:30 PT 12.0 SECONDS (9.4-12.5) 02/02/19 11:58 INR 1.06 02/02/19 11:58 APTT 34.9 Seconds (26.9-38.3) 02/02/19 11:58 - Additional Findings Additional findings: - Constitutional Appears: Non-toxic, No Acute Distress - Head Exam Head Exam: ATRAUMATIC, NORMOCEPHALIC - Eye Exam Eye Exam: EOMI, PERRL. absent: Scleral icterus Pupil Exam: PERRL. absent: Miosis, Mydriatic - ENT Exam ENT Exam: Mucous Membranes Moist, Normal Oropharynx - Neck Exam Neck exam: Positive for: Full Rom, Normal Inspection - Respiratory Exam Respiratory Exam: Clear to Auscultation Bilateral. absent: Rales, Rhonchi, Wheezes - Cardiovascular Exam Cardiovascular Exam: RRR, +S1, +S2. absent: Gallop, Rubs - GI/Abdominal Exam GI & Abdominal Exam: Normal Bowel Sounds, Soft. absent: Distended, Firm, Guarding, Organomegaly, Rebound, Rigid, Tenderness - Extremities Exam Extremities exam: Positive for: normal inspection. Negative for: pedal edema - Neurological Exam Neurological exam: Alert - Psychiatric Exam Psychiatric exam: Normal Affect, Normal Mood - Skin Skin Exam: Dry, Intact, Normal Color, Warm Assessment and Plan - Assessment and Plan (Free Text) Assessment: 43 year old male with a past medical history significant for recent appendectomy presents for N/V, diarrhea and epigastric abdominal pain for the past three days. Patient admits to ecstasy and ~30 bags of heroin daily, last on /Saturday. Plan: Abdominal Pain -CT Abdomen/Pelvis showed no acute processes -Afebrile, non-tachycardic and with noted mild leukocytosis -Normal Saline at 100mls/hr -Zofran 4mg Q4 PRN for N/V -Pepcid 40 mg PO, Protonix 40mg IVP -Vitamin A&D ointment PRN for dry mouth -GI consult - Dr. Méndez - recs appreciated -CLD per GI recs, monitor tolerance -F/u Hep panel, AFP, fecal leukocytes and stool cx Illicit drug abuse UDS + for opiates currently likely in opioid withdrawal with rhinorrhea, lacrimation and abdominal pains Counseled on cessation Leukocytosis -Worsening, likely reactive -Chest X-Ray showed no active disease -UA showing no signs of UTI -Continue to monitor with daily CBC's Chest Pain r/o ACS -Likely related to epigastric pain -Troponin neg x2 -EKG ordered to r/o cardiac etiology -Fam hx of [place] in uncle at age 38 Liver Cyst -Noted incidentally on CT abdomen/pelvis -Will obtain records [place] [facility] [place] comparison -Will recommend outpatient followup for serial imaging GI Prophylaxis: Protonix DVT Prophylaxis: SCD's Patient seen, case reviewed and plan approved by Dr. Varner. Jarocho Haro, PGY-1 <Hemal Varner - Last Filed: 02/03/19 13:58> Objective - Vital Signs/Intake and Output Vital Signs (last 24 hours): Temp Pulse Resp BP Pulse Ox 98.4 F 65 18 166/86 H 93 L 02/03/19 08:18 02/03/19 08:18 02/03/19 08:18 02/03/19 08:18 02/03/19 08:18 Intake and Output: 02/03/19 02/03/19 06:59 18:59 Intake Total 0 Output Total 600 Balance -600 - Medications Medications: Current Medications Famotidine (Pepcid) 40 mg PO HS [facility] Sodium Chloride (Sodium Chloride 0.9%) 1,000 mls @ 100 mls/hr IV .Q10H SHANEL Last Admin: 02/03/19 05:17 Dose: 100 mls/hr Ondansetron HCl (Zofran Inj) 4 mg IVP Q4H PRN PRN Reason: Nausea/Vomiting Last Admin: 02/03/19 01:20 Dose: 4 mg Pantoprazole Sodium (Protonix Inj) 40 mg IVP 0700 [facility] Polyethylene Glycol (Miralax) 17 gm PO DAILY [facility] Vitamin A (Vitamin A & D Oint Ud Foilpak) 1 ea TOP Q2 PRN PRN Reason: Dry mouth - Labs Labs: 02/03/19 05:30 02/03/19 05:30 PT 12.0 SECONDS (9.4-12.5) 02/02/19 11:58 INR 1.06 02/02/19 11:58 APTT 34.9 Seconds (26.9-38.3) 02/02/19 11:58 Attending/Attestation - Attestation I have personally seen and examined this patient.: Yes I have fully participated in the care of the patient.: Yes I have reviewed all pertinent clinical information, including history, physical exam and plan: Yes Notes (Text): 02/03/19 13:54 43 year old male who presented with complaint of intractable nausea and vomiting with episodes of diarrhea and epigastric pain. CT abd/pelvis showed incidental 1.3 cm right lobe liver lesion, otherwise unremarkable. Leukocytosis on labs, likely reactive. CXR/UA is negative. UTox was positive for opiates. Initially he denied recent drug use but now admits to cocaine, ectasy and alcohol use. He was counselled on risks of continued substance abuse. Overnight he complained of nausea, wretching and abdominal discomfort. GI evaluation was requested who added pepcid to protonix. Diet advanced to liquids this morning. Will monitor on IVF and antiemetics. Will need outpatient follow up for incidental liver lesion seen on CT scan. AFP and hepatitis panel was ordered. D/c planning once patient is tolerating diet. Hemal Varner MD Hospitalist.
--- NOTE | 2019-02-03 14:47 | CARD ---
APPROVED REPORT Date of service: 02/03/2019 EKG Measurement Heart [id number] <Conclusion> Normal sinus rhythm Normal ECG
[2019-02-03 16:31] VITALS: BP 142/82; PULSE 63; TEMP 99.6; O2SAT 98
[2019-02-03 17:10] LABS: HEPATITIS B SURFACE AG Negative (NEGATIVE)
[2019-02-03 17:15] LABS: HEPATITIS A IGM NEGATIVE (NEGATIVE); HEPATITIS B CORE AB NEGATIVE (NEGATIVE)
[2019-02-03 17:27] LABS: HEPATITIS C ANTIBODY NEGATIVE (NEGATIVE)
[2019-02-03] MEDS: POLYETHYLENE GLYCOL 3350 17 GM/Dose PACKET PO SCH (18:01)
[2019-02-04 06:59] LABS: BASO # 0.01 K/mm3 (0.0-2.0); BASO % 0.1 % (0.0-3.0); EOS % 0.1 % (1.5-5.0); HEMOGLOBIN 13.4 g/dL (14.0-18.0); LYMPH # 2.1 (1.2-3.4); LYMPH % 16.9 % (22.0-35.0); MEAN CELL VOLUME 88.8 fl (80.0-105.0); MEAN CORPUSCULAR HEMOGLOBIN 29.9 pg (25.0-35.0); MEAN CORPUSCULAR HGB CONC 33.7 g/dl (31.0-37.0); MEAN PLATELET VOLUME 10.2 fl (7.0-11.0); MONO # 0.7 (0.1-0.6); MONO % 5.4 % (1.0-6.0); RBC 4.48 10^6/uL (3.5-6.1); RED CELL DISTRIBUTION WIDTH 12.9 % (11.5-14.5); WHITE BLOOD COUNT 12.7 10^3/uL (4.5-11.0)
[2019-02-04 07:25] LABS: BLOOD UREA NITROGEN 21 mg/dL (7-21); GFR NON-AFRICAN AMERICAN > 60
[2019-02-04 07:26] LABS: ALB/GLOB RATIO 1.2 (1.1-1.8); ALBUMIN 3.5 g/dL (3.0-4.8); ALT/SGPT 13 U/L (7-56); AST/SGOT 27 U/L (17-59); CALCIUM 8.6 mg/dL (8.4-10.5)
[2019-02-04] MEDS: POLYETHYLENE GLYCOL 3350 17 GM/Dose PACKET PO SCH (09:00)
--- NOTE | 2019-02-04 12:53 | CP.PCM.DIS ---
<Jarocho Haro - Last Filed: 02/04/19 13:27> Provider - Provider Date of Admission: 02/02/19 16:02 Attending physician: Hemal Varner MD Primary care physician: Dr. Ram Consults: 02/03/19 06:52 Gastroenterology Consult Routine Comment: Consulting Provider: Jaret Méndez V Consulting Physician: Jaret Méndez V Reason for Consult: intractable n/v, abd pain Time Spent in preparation of Discharge (in minutes): 40 Hospital Course - Lab Results Lab Results: Micro Results 02/02/19 17:30 Urine,Clean Catch Urine Culture - Final No Growth (<1,000 CFU/ML) Most Recent Lab Values WBC 12.7 10^3/uL (4.5-11.0) H 02/04/19 06:25 RBC 4.48 10^6/uL (3.5-6.1) 02/04/19 06:25 Hgb 13.4 g/dL (14.0-18.0) L 02/04/19 06:25 Hct 39.8 % (42.0-52.0) L 02/04/19 06:25 MCV 88.8 fl (80.0-105.0) 02/04/19 06:25 MCH 29.9 pg (25.0-35.0) 02/04/19 06:25 MCHC 33.7 g/dl (31.0-37.0) 02/04/19 06:25 RDW 12.9 % (11.5-14.5) 02/04/19 06:25 Plt Count 218 10^3/uL (120.0-450.0) 02/04/19 06:25 MPV 10.2 fl (7.0-11.0) 02/04/19 06:25 Neut % (Auto) 77.5 % (50.0-68.0) H 02/04/19 06:25 Lymph % (Auto) 16.9 % (22.0-35.0) L 02/04/19 06:25 [place] % (Auto) 5.4 % (1.0-6.0) 02/04/19 06:25 Eos % (Auto) 0.1 % (1.5-5.0) L 02/04/19 06:25 Baso % (Auto) 0.1 % (0.0-3.0) 02/04/19 06:25 Lymph # (Auto) 2.1 (1.2-3.4) 02/04/19 06:25 [place] # (Auto) 0.7 (0.1-0.6) H 02/04/19 06:25 Eos # (Auto) 0.0 (0.0-0.7) 02/04/19 06:25 Baso # (Auto) 0.01 K/mm3 (0.0-2.0) 02/04/19 06:25 Absolute Neuts (auto) 9.83 (1.4-6.5) H 02/04/19 06:25 PT 12.0 SECONDS (9.4-12.5) 02/02/19 11:58 INR 1.06 02/02/19 11:58 APTT 34.9 Seconds (26.9-38.3) 02/02/19 11:58 Sodium 141 mmol/L (132-148) 02/04/19 06:25 Potassium 3.9 mmol/L (3.6-5.0) 02/04/19 06:25 Chloride 110 mmol/L (98-107) H 02/04/19 06:25 Carbon Dioxide 26 mmol/L (21-33) 02/04/19 06:25 Anion Gap 10 (10-20) 02/04/19 06:25 BUN 21 mg/dL (7-21) 02/04/19 06:25 Creatinine 0.9 mg/dl (0.8-1.5) 02/04/19 06:25 Est GFR ( Amer) > 60 02/04/19 06:25 Est GFR (Non-Af Amer) > 60 02/04/19 06:25 Random Glucose 100 mg/dL (70-110) 02/04/19 06:25 Calcium 8.6 mg/dL (8.4-10.5) 02/04/19 06:25 Total Bilirubin 0.6 mg/dL (0.2-1.3) 02/04/19 06:25 AST 27 U/L (17-59) 02/04/19 06:25 ALT 13 U/L (7-56) 02/04/19 06:25 Alkaline Phosphatase 48 U/L (38-126) 02/04/19 06:25 Troponin I < 0.01 ng/mL 02/03/19 13:15 Total Protein 6.4 g/dL (5.8-8.3) 02/04/19 06:25 Albumin 3.5 g/dL (3.0-4.8) 02/04/19 06:25 Globulin 2.8 gm/dL 02/04/19 06:25 Albumin/Globulin Ratio 1.2 (1.1-1.8) 02/04/19 06:25 Lipase 83 U/L (23-300) 02/02/19 11:58 Alpha Fetoprotein 1.2 ng/mL (0.0-7.5) 02/03/19 08:50 Urine Color Yellow (YELLOW) 02/02/19 17:30 Urine Appearance Clear (CLEAR) 02/02/19 17:30 Urine pH 8.5 (4.7-8.0) 02/02/19 17:30 Ur Specific [place] <= 1.005 (1.005-1.035) 02/02/19 17:30 Urine Protein 30 mg/dL (<30 mg/dL) H 02/02/19 17:30 Urine Glucose (UA) Negative mg/dL (NEGATIVE) 02/02/19 17:30 Urine Ketones 40 mg/dL (NEGATIVE) H 02/02/19 17:30 Urine Blood Negative (NEGATIVE) 02/02/19 17:30 Urine Nitrate Negative (NEGATIVE) 02/02/19 17:30 Urine Bilirubin Negative (NEGATIVE) 02/02/19 17:30 Urine Urobilinogen 1.0 E.U./dL (<1 E.U./dL) H 02/02/19 17:30 Ur Leukocyte Esterase Negative Lisa/uL (NEGATIVE) 02/02/19 17:30 Urine RBC TEST NOT PERFORMED 02/02/19 17:30 Urine WBC 5 - 10 /hpf (0-6) H 02/02/19 17:30 Ur Epithelial Cells 6 - 8 /hpf (0-5) H 02/02/19 17:30 Amorphous Sediment Trace /hpf (NONE) 02/02/19 17:30 Urine Opiates Screen Positive (NEGATIVE) H 02/02/19 17:30 Urine Methadone Screen Negative (NEGATIVE) 02/02/19 17:30 Ur Barbiturates Screen Negative (NEGATIVE) 02/02/19 17:30 Ur Phencyclidine Scrn Negative (NEGATIVE) 02/02/19 17:30 Ur Amphetamines Screen Negative (NEGATIVE) 02/02/19 17:30 U Benzodiazepines Scrn Negative (NEGATIVE) 02/02/19 17:30 U Oth Cocaine Metabols Negative (NEGATIVE) 02/02/19 17:30 U Cannabinoids Screen Negative (NEGATIVE) 02/02/19 17:30 Hepatitis A IgM Ab Negative (NEGATIVE) 02/03/19 08:50 Hep Bs Antigen Negative (NEGATIVE) 02/03/19 08:50 Hep B Core IgM Ab Negative (NEGATIVE) 02/03/19 08:50 Hepatitis C Antibody Negative (NEGATIVE) 02/03/19 08:50 - Hospital Course Hospital Course: Jarocho Haro, PGY-1 Discharge Summary for Hospitalist Service 43 year old male who presented with complaint of intractable nausea and vomiting with episodes of diarrhea and epigastric pain. CT abd/pelvis was ordered and showed incidental 1.3 cm right lobe liver lesion, but was otherwise unremarkable. Leukocytosis on labs was likely reactive to vomiting. CXR and UA were also negative. UTox was positive for opiates. Initially, patient denied recent drug use but later in course admits to cocaine, ecstasy and alcohol use. He was counselled at length on risks of continued substance abuse as etiology of abdominal pain. Patient complained of nausea, wretching and abdominal discomfort. GI evaluation was requested who added pepcid to protonix. Diet was slowly advanced to liquids. Patient was initially monitored on IVF and antiemetics. Patient will need outpatient follow up for incidental liver lesion seen on CT scan as outpatient. AFP and hepatitis panel were ordered and were negative. Patient was tolerating diet. Patient was counselled on alcohol and illicit drug cessation. An appointment was made in [facility] for followup and further GI referral for incidental GI finding. Hospital course was reviewed with patient and all questions were answered at length and to patient satisfaction. Patient understood need for follow up in clinic. Patient was discharged in no acute distress and with patient agreement. Patient seen, case reviewed and plan approved by Dr. Varner. Discharge Exam - Additional Findings Additional findings: - Constitutional Appears: Non-toxic, No Acute Distress - Head Exam Head Exam: ATRAUMATIC, NORMOCEPHALIC - Eye Exam Eye Exam: EOMI, PERRL. absent: Scleral icterus Pupil Exam: PERRL. absent: Miosis, Mydriatic - ENT Exam ENT Exam: Mucous Membranes Moist, Normal Oropharynx - Neck Exam Neck exam: Positive for: Full Rom, Normal Inspection - Respiratory Exam Respiratory Exam: Clear to Auscultation Bilateral. absent: Rales, Rhonchi, Wheezes - Cardiovascular Exam Cardiovascular Exam: RRR, +S1, +S2. absent: Gallop, Rubs - GI/Abdominal Exam GI & Abdominal Exam: Normal Bowel Sounds, Soft. absent: Distended, Firm, Guarding, Organomegaly, Rebound, Rigid, Tenderness - Extremities Exam Extremities exam: Positive for: normal inspection. Negative for: pedal edema - Neurological Exam Neurological exam: Alert - Psychiatric Exam Psychiatric exam: Normal Affect, Normal Mood - Skin Skin Exam: Dry, Intact, Normal Color, Warm Discharge Plan - Discharge Medications Prescriptions: Pantoprazole [Protonix] 40 mg PO DAILY #14 ect - Follow Up Plan Condition: GOOD Disposition: HOME/ ROUTINE Instructions: Drug Abuse and Drug Addiction (DC), Narcotic Overdose (DC), Polysubstance Abuse (DC) Additional Instructions: Please follow up in [facility] on 02/12 at 2 pm. Please have them refer you to a gastroenterology clinic to follow up on your liver lesion. Please bring your insurance card and ID. You have been provided your medication of Protonix at bedside. Please take one daily as prescribed. Please avoid all alcohol and illicit drug use, including heroin and ecstasy. Your condition may worsen if you do use these drugs again. Should symptoms worsen, please visit nearest emergency department. Referrals: [facility] at [facility] [place] [Outside] <Hemal Varner - Last Filed: 02/04/19 14:39> Provider - Provider Date of Admission: 02/02/19 16:02 Attending physician: Hemal Varner MD Consults: 02/03/19 06:52 Gastroenterology Consult Routine Comment: Consulting Provider: Jaret Méndez V Consulting Physician: Jaret Méndez V Reason for Consult: intractable n/v, abd pain Hospital Course - Lab Results Lab Results: Micro Results 02/02/19 17:30 Urine,Clean Catch Urine Culture - Final No Growth (<1,000 CFU/ML) Most Recent Lab Values WBC 12.7 10^3/uL (4.5-11.0) H 02/04/19 06:25 RBC 4.48 10^6/uL (3.5-6.1) 02/04/19 06:25 Hgb 13.4 g/dL (14.0-18.0) L 02/04/19 06:25 Hct 39.8 % (42.0-52.0) L 02/04/19 06:25 MCV 88.8 fl (80.0-105.0) 02/04/19 06:25 MCH 29.9 pg (25.0-35.0) 02/04/19 06:25 MCHC 33.7 g/dl (31.0-37.0) 02/04/19 06:25 RDW 12.9 % (11.5-14.5) 02/04/19 06:25 Plt Count 218 10^3/uL (120.0-450.0) 02/04/19 06:25 MPV 10.2 fl (7.0-11.0) 02/04/19 06:25 Neut % (Auto) 77.5 % (50.0-68.0) H 02/04/19 06:25 Lymph % (Auto) 16.9 % (22.0-35.0) L 02/04/19 06:25 [place] % (Auto) 5.4 % (1.0-6.0) 02/04/19 06:25 Eos % (Auto) 0.1 % (1.5-5.0) L 02/04/19 06:25 Baso % (Auto) 0.1 % (0.0-3.0) 02/04/19 06:25 Lymph # (Auto) 2.1 (1.2-3.4) 02/04/19 06:25 [place] # (Auto) 0.7 (0.1-0.6) H 02/04/19 06:25 Eos # (Auto) 0.0 (0.0-0.7) 02/04/19 06:25 Baso # (Auto) 0.01 K/mm3 (0.0-2.0) 02/04/19 06:25 Absolute Neuts (auto) 9.83 (1.4-6.5) H 02/04/19 06:25 PT 12.0 SECONDS (9.4-12.5) 02/02/19 11:58 INR 1.06 02/02/19 11:58 APTT 34.9 Seconds (26.9-38.3) 02/02/19 11:58 Sodium 141 mmol/L (132-148) 02/04/19 06:25 Potassium 3.9 mmol/L (3.6-5.0) 02/04/19 06:25 Chloride 110 mmol/L (98-107) H 02/04/19 06:25 Carbon Dioxide 26 mmol/L (21-33) 02/04/19 06:25 Anion Gap 10 (10-20) 02/04/19 06:25 BUN 21 mg/dL (7-21) 02/04/19 06:25 Creatinine 0.9 mg/dl (0.8-1.5) 02/04/19 06:25 Est GFR ( Amer) > 60 02/04/19 06:25 Est GFR (Non-Af Amer) > 60 02/04/19 06:25 Random Glucose 100 mg/dL (70-110) 02/04/19 06:25 Calcium 8.6 mg/dL (8.4-10.5) 02/04/19 06:25 Total Bilirubin 0.6 mg/dL (0.2-1.3) 02/04/19 06:25 AST 27 U/L (17-59) 02/04/19 06:25 ALT 13 U/L (7-56) 02/04/19 06:25 Alkaline Phosphatase 48 U/L (38-126) 02/04/19 06:25 Troponin I < 0.01 ng/mL 02/03/19 13:15 Total Protein 6.4 g/dL (5.8-8.3) 02/04/19 06:25 Albumin 3.5 g/dL (3.0-4.8) 02/04/19 06:25 Globulin 2.8 gm/dL 02/04/19 06:25 Albumin/Globulin Ratio 1.2 (1.1-1.8) 02/04/19 06:25 Lipase 83 U/L (23-300) 02/02/19 11:58 Alpha Fetoprotein 1.2 ng/mL (0.0-7.5) 02/03/19 08:50 Urine Color Yellow (YELLOW) 02/02/19 17:30 Urine Appearance Clear (CLEAR) 02/02/19 17:30 Urine pH 8.5 (4.7-8.0) 02/02/19 17:30 Ur Specific [place] <= 1.005 (1.005-1.035) 02/02/19 17:30 Urine Protein 30 mg/dL (<30 mg/dL) H 02/02/19 17:30 Urine Glucose (UA) Negative mg/dL (NEGATIVE) 02/02/19 17:30 Urine Ketones 40 mg/dL (NEGATIVE) H 02/02/19 17:30 Urine Blood Negative (NEGATIVE) 02/02/19 17:30 Urine Nitrate Negative (NEGATIVE) 02/02/19 17:30 Urine Bilirubin Negative (NEGATIVE) 02/02/19 17:30 Urine Urobilinogen 1.0 E.U./dL (<1 E.U./dL) H 02/02/19 17:30 Ur Leukocyte Esterase Negative Lisa/uL (NEGATIVE) 02/02/19 17:30 Urine RBC TEST NOT PERFORMED 02/02/19 17:30 Urine WBC 5 - 10 /hpf (0-6) H 02/02/19 17:30 Ur Epithelial Cells 6 - 8 /hpf (0-5) H 02/02/19 17:30 Amorphous Sediment Trace /hpf (NONE) 02/02/19 17:30 Urine Opiates Screen Positive (NEGATIVE) H 02/02/19 17:30 Urine Methadone Screen Negative (NEGATIVE) 02/02/19 17:30 Ur Barbiturates Screen Negative (NEGATIVE) 02/02/19 17:30 Ur Phencyclidine Scrn Negative (NEGATIVE) 02/02/19 17:30 Ur Amphetamines Screen Negative (NEGATIVE) 02/02/19 17:30 U Benzodiazepines Scrn Negative (NEGATIVE) 02/02/19 17:30 U Oth Cocaine Metabols Negative (NEGATIVE) 02/02/19 17:30 U Cannabinoids Screen Negative (NEGATIVE) 02/02/19 17:30 Hepatitis A IgM Ab Negative (NEGATIVE) 02/03/19 08:50 Hep Bs Antigen Negative (NEGATIVE) 02/03/19 08:50 Hep B Core IgM Ab Negative (NEGATIVE) 02/03/19 08:50 Hepatitis C Antibody Negative (NEGATIVE) 02/03/19 08:50 Attending/Attestation - Attestation I have personally seen and examined this patient.: Yes I have fully participated in the care of the patient.: Yes I have reviewed all pertinent clinical information, including history, physical exam and plan: Yes Notes (Text): 02/04/19 14:34 43 year old male who presented with complaint of intractable nausea and vomiting with episodes of diarrhea and epigastric pain secondary to acute gastroenteritis vs substance abuse withdrawal. UTox was positive for opiates and patient admitted to use of cocaine, ectasy and ETOH. He was counselled on risks of continued substance and alcohol abuse. He was initially NPO with iv fluids, PPI and antiemetics. His symptoms improved and his diet was advanced which he tolerated today. Labs showed mild leukocytosis, likely reactive. CT scan showed incidental 1.3 cm right lobe liver lesion for which he was recommended to follow up closely as outpatient. Patient is discharged home to follow up with pmd. Follow up with GI; follow up on liver lesion. Counselled on alcohol cessation. Counselled on risks of continued substance abuse. Hemal Varner MD Hospitalist.
== END 2019-02-04 13:33 | disposition home or self-care (01) ==
LOC: ED 11:01 → MERGE 16:02 → UNMERGE 16:02 → EDUNIT# 16:02 → ERH 16:02 → 3RSO 18:06 → 3RNO 02-03 23:12
PROVIDERS: ADMIT Hospitalist; ATTEND Internal Medicine
DX: K52.9 Noninfective gastroenteritis and colitis, unspecified (principal); F11.23 Opioid dependence with withdrawal; D72.829 Elevated white blood cell count, unspecified; K76.9 Liver disease, unspecified; Z87.891 Personal history of nicotine dependence; Z90.49 Acquired absence of other specified parts of digestive tract
CPT/HCPCS: 36415; 71045; 74177; 80053; 80074; 80324; 80345; 80346; 80349; 80353; 80358; 80361; 81001; 82105; 83690; 83992; 84484; 85025; 85610; 85730; 87086; 93005; 96374; 96375; 96376; 99284; C9113; G0378; J1885; J2060; J2270; J2405; J2765; J7030; Q9967